=== PATIENT | female | born 1985 | race Caucasian/White ===

== ENCOUNTER 2016-11-01 11:58 | Outpatient (CLI) | payer BC ==
--- NOTE | 2016-11-01 13:12 | XRAY Preliminary Report ---
Exam: XR Tib/Fib RT IMPRESSION: Normal tibia/fibula radiography. [facility] SITE ID: [id number]
--- NOTE | 2016-11-01 13:15 | XRAY Report ---
EXAM: RIGHT TIBIA/FIBULA RADIOGRAPHY EXAM DATE: 11/01/2016 12:18 PM. CLINICAL HISTORY: PX @ [place]. Thrown from horse. Landed on feet. Twisted wrong. COMPARISON: None. TECHNIQUE: 2 views. FINDINGS: Bones: Normal. No fracture or bone lesion. Joints: The visualized knee and ankle joints are normal. No effusions. Soft Tissues: Normal. No soft tissue swelling. IMPRESSION: Normal tibia/fibula radiography. [facility] Referring Provider Line: [phone] SITE ID: [id number]
== END 2016-11-01 11:59 | disposition home or self-care (01) ==
LOC: DI 11:58
PROVIDERS: ATTEND Specialist
DX: M79.661 Pain in right lower leg (principal)

== ENCOUNTER 2018-10-12 10:13 | Outpatient (CLI) | payer BC ==
[2018-10-12 17:38] LABS: BASOPHILS # (AUTO) 0.1 10^3/uL (0.0-0.1); BASOPHILS % (AUTO) 1.1 %; EOSINOPHILS # (AUTO) 0.2 10^3/uL (0.0-0.7); EOSINOPHILS % (AUTO) 4.1 %; HGB - HEMOGLOBIN 15.7 g/dL (12.0-16.0); LYMPHOCYTES # (AUTO) 1.1 10^3/uL (1.5-3.5); LYMPHOCYTES % (AUTO) 23.6 %; MEAN CORPUSCULAR HEMOGLOBIN 28.9 pg (27.0-31.0); MEAN CORPUSCULAR VOLUME 87.7 fL (81.0-99.0); MONOCYTES # (AUTO) 0.3 10^3/uL (0.0-1.0); MONOCYTES % (AUTO) 6.6 %; NEUTROPHILS % (AUTO) 64.4 %; PLT - PLATELET COUNT 187 10^3/uL (130-450); RED BLOOD COUNT 5.43 10^6/uL (4.20-5.40); RED CELL DISTRIBUTION WIDTH 12.5 % (12.0-15.0); WHITE BLOOD COUNT 4.7 x10^3/uL (4.8-10.8)
[2018-10-12 18:06] LABS: ALBUMIN 4.5 g/dL (3.2-5.5); ALBUMIN/GLOBULIN RATIO 1.8 (1.0-2.2); ALKALINE PHOSPHATASE 48 IU/L (42-121); ALT ALANINE AMINOTRANSFERASE 16 IU/L (10-60); AST ASPARTATE AMINOTRANSFERASE 18 IU/L (10-42); BUN - BLOOD UREA NITROGEN 15 mg/dL (6-20); CALCIUM 9.2 mg/dL (8.5-10.3); CARBON DIOXIDE - CO2 28 mmol/L (21-32); CHLORIDE 104 mmol/L (101-111); CHOLESTEROL 205 mg/dL; CREATININE 0.7 mg/dL (0.4-1.0); GFR - MDRD 98 (>89); GLUCOSE 93 mg/dL (70-100); HDL CHOLESTEROL 68 mg/dL; LDL CHOLESTEROL,CALCULATED 124 mg/dL; LDL/HDL RATIO 1.8 (<4.4); SODIUM 141 mmol/L (135-145); VLDL CHOLESTEROL 13 mg/dL
[2018-10-12 18:31] LABS: HB2 TOTAL 16.1 g/dL; HEMOGLOBIN A1C 0.54 g/dL; HEMOGLOBIN A1C % 5.2 % (4.6-6.2)
== END 2018-10-12 10:14 | disposition home or self-care (01) ==
LOC: LAB.F 10:13
PROVIDERS: ATTEND Registered Nurse
DX: G47.00 Insomnia, unspecified (principal); F41.8 Other specified anxiety disorders; H53.9 Unspecified visual disturbance; R53.83 Other fatigue
CPT/HCPCS: 36415; 80053; 80061; 83036; 83721; 84443; 85025

== ENCOUNTER 2019-01-11 11:30 | Outpatient (CLI) | payer BC | END 2019-01-11 11:31 | disposition critical access hospital (66) | LOC: EMS 11:30 | PROVIDERS: ATTEND Surgery | DX: R10.2 Pelvic and perineal pain (principal) | CPT/HCPCS: A0425; A0429 ==

== ENCOUNTER 2019-01-11 11:50 | Emergency (ER) | payer BC ==
[2019-01-11 12:13] LABS: BILIRUBIN,URINE NEGATIVE (NEGATIVE); GLUCOSE, URINE (UA) NEGATIVE (NEGATIVE); KETONES,URINE (UA) NEGATIVE (NEGATIVE); LEUKOCYTE ESTERASE, URINE NEGATIVE (NEGATIVE); NITRITE,URINE NEGATIVE (NEGATIVE); OCCULT BLOOD,URINE NEGATIVE (NEGATIVE); PH,URINE 7.5 PH (5.0-7.5); PROTEIN,URINE NEGATIVE (NEGATIVE); UROBILINOGEN,URINE 0.2 (NORMAL) E.U./dL (NORMAL)
[2019-01-11 12:19] LABS: CLARITY,URINE CLEAR (CLEAR)
[2019-01-11 12:20] LABS: HCG UR QUAL NEGATIVE
[2019-01-11 12:39] LABS: BASOPHILS % (AUTO) 0.4 %; EOSINOPHILS # (AUTO) 0.1 10^3/uL (0.0-0.7); HGB - HEMOGLOBIN 15.4 g/dL (12.0-16.0); LYMPHOCYTES # (AUTO) 1.2 10^3/uL (1.5-3.5); LYMPHOCYTES % (AUTO) 16.2 %; MEAN CORPUSCULAR HEMOGLOBIN 30.4 pg (27.0-31.0); MEAN CORPUSCULAR VOLUME 84.6 fL (81.0-99.0); MEAN PLATELET VOLUME 9.1 fL (7.9-10.8); MONOCYTES # (AUTO) 0.4 10^3/uL (0.0-1.0); MONOCYTES % (AUTO) 5.7 %; NEUTROPHILS # (AUTO) 5.4 10^3/uL (1.5-6.6); NEUTROPHILS % (AUTO) 75.3 %; PLT - PLATELET COUNT 178 10^3/uL (130-450); RED BLOOD COUNT 5.06 10^6/uL (4.20-5.40); RED CELL DISTRIBUTION WIDTH 12.4 % (12.0-15.0); WHITE BLOOD COUNT 7.2 x10^3/uL (4.8-10.8)
[2019-01-11 12:55] LABS: ALBUMIN 4.4 g/dL (3.2-5.5); ALBUMIN/GLOBULIN RATIO 1.6 (1.0-2.2); BILIRUBIN,TOTAL 0.8 mg/dL (0.2-1.0); CALCIUM 9.3 mg/dL (8.5-10.3); CREATININE 0.7 mg/dL (0.4-1.0); TOTAL PROTEIN 7.1 g/dL (6.7-8.2)
--- NOTE | 2019-01-11 12:59 | ED Physician Documentation ---
PD HPI ABD PAIN - Stated complaint Stated Complaint: PELVIC PAIN - Chief complaint Chief Complaint: Abd Pain - History obtained from History obtained from: Patient - History of Present Illness Timing - onset: Today (33-year-old woman with history of ovarian cysts had severe central pelvic pain that lasted about 15 minutes earlier today and is now gone except for a very mild residual ache. 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 - Past Surgical History Past Surgical History: No - Allergies Allergies/Adverse Reactions: Allergies Allergy/AdvReac Type Severity Reaction Status Date / Time No Known Drug Allergies Allergy Verified 01/11/19 11:57 - Social History Does the pt smoke?: No Smoking Status: Never smoker Does the pt drink ETOH?: Yes Does the pt have substance abuse?: No - Immunizations Immunizations are current?: Yes PD ED PE NORMAL - Vitals Vital signs reviewed: Yes - General General: Alert and oriented X 3, No acute distress - Respiratory Respiratory: No respiratory distress - Abdomen Abdomen: Soft, Non tender - Extremities Extremities: No edema, No calf tenderness / cord - Neuro Neuro: Alert and oriented X 3, Normal speech Results - Vitals Vitals: Vital Signs - 24 hr 01/11/19 11:54 Temperature 36.6 C Heart Rate 87 Respiratory 16 Rate Blood Pressure 137/102 H O2 Saturation 99 Oxygen O2 Source Room air - Labs Labs: Laboratory Tests 01/11/19 01/11/19 01/11/19 12:01 12:31 12:31 WBC 7.2 RBC 5.06 Hgb 15.4 Hct 42.8 MCV 84.6 MCH 30.4 MCHC 36.0 RDW 12.4 Plt Count 178 MPV 9.1 Neut # (Auto) 5.4 Lymph # (Auto) 1.2 L Terry # (Auto) 0.4 Eos # (Auto) 0.1 Baso # (Auto) 0.0 Absolute Nucleated RBC 0.00 Nucleated RBC % 0.0 Sodium 139 Potassium 3.8 Chloride 104 Carbon Dioxide 28 Anion Gap 7.0 BUN 11 Creatinine 0.7 Estimated GFR (MDRD) 98 Glucose 106 H Calcium 9.3 Total Bilirubin 0.8 AST 20 ALT 20 Alkaline Phosphatase 51 Total Protein 7.1 Albumin 4.4 Globulin 2.7 Albumin/Globulin Ratio 1.6 Lipase 29 Urine Color YELLOW Urine Clarity CLEAR Urine pH 7.5 Ur Specific [place] 1.010 Urine Protein NEGATIVE Urine Glucose (UA) NEGATIVE Urine Ketones NEGATIVE Urine Occult Blood NEGATIVE Urine Nitrite NEGATIVE Urine Bilirubin NEGATIVE Urine Urobilinogen 0.2 (NORMAL) Ur Leukocyte Esterase NEGATIVE Ur Microscopic Review NOT INDICATED Urine Culture Comments NOT INDICATED Urine HCG, Qual NEGATIVE PD MEDICAL DECISION MAKING - ED course ED course: 33-year-old woman with severe but resolved pelvic pain, ultrasound was offered and she declined. Departure - Departure Disposition: Home, Self Care Clinical Impression: Pelvic pain Condition: Good Record reviewed to determine appropriate education?: Yes Instructions: ED Pelvic Pain [facility] Comments: Follow-up with your primary care physician. Return if pain recurs. Forms: Activity restrictions
[2019-01-11] MEDS ORDERED: KETOROLAC 30 MG/ML VIAL IVP STA (13:00)
[2019-01-11 13:13] VITALS: BP 139/88
== END 2019-01-11 13:17 | disposition home or self-care (01) ==
LOC: EDUNIT# → ED 11:50
DX: R10.2 Pelvic and perineal pain (principal)
CPT/HCPCS: 36415; 80053; 81001; 81003; 81025; 83690; 85025; 87086; 96374; 99282

== ENCOUNTER 2022-10-23 23:29 | Emergency (ER) | payer BC, OTHER ==
[2022-10-24] MEDS ORDERED: KETOROLAC 30 MG/ML VIAL IM STA (00:16)
[2022-10-24] MEDS ORDERED: CYCLOBENZAPRINE 10 MG TABLET PO STA (00:16)
--- NOTE | 2022-10-24 01:23 | ED Physician Documentation ---
History of Present Illness - Stated complaint Stated Complaint: FELL OFF HORSE - Chief complaint Chief Complaint: Trauma Ext - History obtained from History obtained from: Patient - Additonal information Additional information: 37yF previously healthy p/w fall from horse twice today, the second time hitting her head and snapping her neck to the left. patient denies loc and was wearing helmet. denies nausea, vision changes, patton, confusion. she does have R neck pain and shoulder pain not responsive to otc ibuprofen. 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 - Past Surgical History Past Surgical History: No - Present Medications Home Medications: Ambulatory Orders Medication Instructions Recorded Confirmed Cyclobenzaprine [Flexeril] 10 mg PO TID PRN 6 Days #20 tablet 10/24/22 Ketorolac [Toradol] 10 mg PO Q6H PRN #20 tablet 10/24/22 - Allergies Allergies/Adverse Reactions: Allergies Allergy/AdvReac Type Severity Reaction Status Date / Time No Known Drug Allergies Allergy Verified 10/23/22 23:36 - Social History Does the pt smoke?: No Smoking Status: Never smoker Does the pt drink ETOH?: Yes Does the pt have substance abuse?: No - Immunizations Immunizations are current?: Yes PD ED PE NORMAL - Vitals Vital signs reviewed: Yes - General General: Alert and oriented X 3, No acute distress, Well developed/nourished - HEENT HEENT: Atraumatic, PERRL, EOMI, Ears normal, Moist mucous membranes, Pharynx benign - Neck Neck: No bony TTP, C-Spine cleared by NEXUS criteria, Other (R neck ttp in trapezius muscle distribution) - Cardiac Cardiac: RRR - Respiratory Respiratory: No respiratory distress, Clear bilaterally - Abdomen Abdomen: Non tender, Non distended - Back Back: Other (upper thoracic spine discomfort to palpation. otherwise nt to tls spine) - Derm Derm: Normal color, Warm and dry - Extremities Extremities: No deformity, Other (R shoulder discomfort with rom. 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 also with HT but no signs/sx of concussion as of yet. patient had upper thoracic tenderness on exam prompting xr thoracic spine that was noncontributory per my wet read. oral flexeril and IM toradol administered with improvement in pain. return precautions given. plan to f/u with pcp. Departure - Departure Clinical Impression: Fall from horse, Neck pain, Back pain, Shoulder pain Condition: Stable Instructions: ED Head Injury Closed, ED Sprain Strain Neck Prescriptions: Cyclobenzaprine [Flexeril] 10 mg PO TID PRN 6 Days #20 tablet PRN Reason: Spasms Ketorolac [Toradol] 10 mg PO Q6H PRN #20 tablet PRN Reason: Pain Comments: You were seen in the emergency department after falling. Your x-rays uncovered no breaks in the bones. You should self monitor carefully for signs of concussion.Return to the emergency department if you have new or worsening symptoms or other concerns. Electronic prescription for Toradol and Flexeril sent to [facility] in [place].
--- NOTE | 2022-10-24 01:33 | XRAY Report ---
PROCEDURE: Thoracic Spine 2 View INDICATIONS: fall from horse TECHNIQUE: 3 views of the thoracic spine were acquired. COMPARISON: None. FINDINGS: Bones: No definite fractures or subluxation. No suspicious bony lesions. 12 pairs of ribs are noted , and appear intact where visualized. Soft tissues: No paravertebral stripe thickening. IMPRESSION: 1. No definite fracture or subluxation. Reviewed by: Tip Cristobal MD on 10/24/2022 1:32 AM PDT Approved by: Tip Cristobal MD on 10/24/2022 1:32 AM PDT Station ID: [id number]
[2022-10-24 01:43] VITALS: BP 123/88
== END 2022-10-24 01:43 | disposition home or self-care (01) ==
LOC: ED 23:29
DX: S13.4XXA Sprain of ligaments of cervical spine, initial encounter (principal); S09.90XA Unspecified injury of head, initial encounter; V80.010A Animal-rider injured by fall from or being thrown from horse in noncollision accident, initial encounter; Y93.52 Activity, horseback riding
CPT/HCPCS: 72070; 96372; 99283; A9270